=== PATIENT | female | born 1980 | race Caucasian/White ===

== ENCOUNTER → 2020-05-30 | Outpatient (CLI) | payer SELFPAY ==
--- NOTE | 2020-06-02 10:01 | RAD ---
XR HAND 3 OR MORE VIEWS, XR WRIST 3 OR MORE VIEWS HISTORY: 40 years Female THUMB PAIN COMPARISON: None. TECHNIQUE: Three views of the left hand and left wrist. FINDINGS: No acute fracture or dislocation. Joint spaces appear maintained throughout the left hand and left wrist. No focal osseous lesion or osseous erosion identified. Negative ulnar variance, which may be inserted an additional and of no clinical significance. This can predispose to osteonecrosis of the lunate (Kienbock's disease). No radiographically apparent sequelae of osteonecrosis is identified. Scapholunate interval appears within normal limits. No diagnostic soft tissue antibody observed. IMPRESSION: No radiographic evidence of an acute osseous abnormality. Negative ulnar variance which may be incidental as discussed.. Electronically signed by: Audie Dixon MD 06/02/2020 9:59 AM CDT
== END ==
LOC: RAD 16:39
PROVIDERS: ATTEND Nurse Practitioner Family
DX: M25.831 Other specified joint disorders, right wrist (principal); M25.832 Other specified joint disorders, left wrist; M25.532 Pain in left wrist; M79.645 Pain in left finger(s)